=== PATIENT | male | born 1960 | race African-American/Black ===

== ENCOUNTER 2016-04-12 16:37 | Inpatient (IN) | payer OTHER ==
[2016-04-12 17:26] VITALS: BMI 28.5
--- NOTE | 2016-04-12 20:02 | HP ---
Admission ROS [facility] Chief Complaint: SEEKING ADMITTANCE TO REHAB. Allergies/Adverse Reactions: Allergies Allergy/AdvReac Type Severity Reaction Status Date / Time No Known Allergies Allergy Verified 04/12/16 19:59 History of Present Illness: 56 Y.O. MAN IS SEEKING REHAB. HE REPORTS A 10 YEAR HISTORY OF HEROIN DEPENDENCE. HE RECENTLY COMPLETED DETOX AT [facility]. Exam Limitations: No Limitations - Ebola screening Have you traveled outside of the country in the last 21 days: No Have you had contact with anyone from an Ebola affected area: No Have you been sick,other than usual withdrawal symptoms: No Do you have a fever: No - Review of Systems Constitutional: Loss of Appetite, Changes in sleep, Weakness EENT: reports: Tearing, Nose Congestion Respiratory: reports: No Symptoms reported Cardiac: reports: No Symptoms Reported GI: reports: Other (GAS) : reports: No Symptoms Reported Musculoskeletal: reports: No Symptoms Reported Integumentary: reports: No Symptoms Reported Neuro: reports: Weakness Endocrine: reports: No Symptoms Reported Hematology: reports: No Symptoms Reported Psychiatric: reports: Judgement Intact, Mood/Affect Appropiate, Orientated x3 Other Systems: Reviewed and Negative Patient History - Patient Medical History Hx Anemia: No Hx Asthma: No Hx Chronic Obstructive Pulmonary Disease (COPD): No Hx Cancer: No Hx Cardiac Disorders: No Hx Congestive Heart Failure: No Hx Hypertension: No Hx Hypercholesterolemia: No Hx Pacemaker: No HX Cerebrovascular Accident: No Hx Seizures: No Hx Dementia: No Hx Diabetes: No Hx Gastrointestinal Disorders: No Hx Liver Disease: No Hx Genitourinary Disorders: No Hx Sexually Transmitted Disorders: No Hx Renal Disease (ESRD): No Hx Thyroid Disease: No Hx Human Immunodeficiency Virus (HIV): No Hx Hepatitis C: No Hx Depression: No Hx Suicide Attempt: No Hx Bipolar Disorder: No Hx Schizophrenia: No - Patient Surgical History Past Surgical History: No - PPD History Previous Implant?: Yes Documented Results: Negative w/o proof Implanted On Prior [facility] Admission?: No PPD to be Administered?: Yes - Reproductive History Patient is a Female of Child Bearing Age (11 -55 yrs old): No - Smoking Cessation Smoking history: Current every day smoker Have you smoked in the past 12 months: Yes Aproximately how many cigarettes per day: 20 Hx Chewing Tobacco Use: No Initiated information on smoking cessation: Yes 'Breaking Loose' booklet given: 04/12/16 - Substance & Tx. History Hx Alcohol Use: No Hx Substance Use: Yes Substance Use Type: Heroin Hx Substance Use Treatment: Yes (DETOX AND REHAB ) - Substances Abused Heroin Route: Inhalation Frequency: Daily Amount used: 10-12 BAGS Age of first use: 26 Date of Last Use: 04/05/16 Family Disease History - Family Disease History Family History: Denies Admission Physical Exam [facility] - Vital Signs Vital Signs: Vital Signs - 24 hr 04/12/16 17:23 Temperature 98.0 F Pulse Rate 90 Respiratory 18 Rate Blood Pressure 138/88 - Physical General Appearance: Yes: No Apparent Distress, Nourished, Appropriately Dressed HEENTM: Yes: Hearing grossly Normal, Normal ENT Inspection, Normocephalic, Normal Voice Respiratory: Yes: Chest Non-Tender, Lungs Clear, Normal Breath Sounds, No Respiratory Distress, No Accessory Muscle Use Neck: Yes: No masses,lesions,Nodules Breast: Yes: Breast Exam Deferred Cardiology: Yes: Regular Rhythm, Regular Rate, S1, S2 Abdominal: Yes: Normal Bowel Sounds, Non Tender, Flat, Soft Genitourinary: Yes: Other (NO COMPLAINTS REPORTED) Back: Yes: Normal Inspection Musculoskeletal: Yes: full range of Motion, Gait Steady Extremities: Yes: Normal Inspection, Normal Range of Motion, Non-Tender Neurological: Yes: Fully Oriented, Alert, Motor Strength 5/5, Normal Mood/Affect , Normal Response Integumentary: Yes: Normal Color, Dry, Warm Lymphatic: Yes: Within Normal Limits - Diagnostic (1) Opioid dependence with withdrawal Current Visit: Yes Status: Chronic Cleared for Admission [facility] - Detox or Rehab [facility] Level of Care: Observation Bed Claeared for Rehab Admission: Yes [facility] Breath Alcohol Content Breath Alcohol Content: 0 Urine Drug Screen - Results Drug Screen Negative: No Urine Drug Screen Results: OPI-Opiates, MDMA-Ecstasy
[2016-04-12] MEDS ORDERED: LOPERAMIDE HCL 2 MG CAPSULE PO PRN (20:06)
[2016-04-12] MEDS ORDERED: MAG HYDROX/AL HYDROX/SIMETH 30 ML UNIT-DOSE CUP PO PRN (20:06)
[2016-04-12] MEDS ORDERED: guaiFENesin/D-METHORPHAN HB 10 ML UNIT-DOSE CUPS PO PRN (20:06)
[2016-04-12] MEDS ORDERED: MAGNESIUM CITRATE 300 ML BOTTLE PO PRN (20:06)
[2016-04-12] MEDS ORDERED: diphenhydrAMINE HCL 50 MG CAPSULE PO PRN (20:06)
[2016-04-12] MEDS ORDERED: ACETAMINOPHEN 325 MG TABLET (FP) PO PRN (20:06)
[2016-04-12] MEDS ORDERED: IBUPROFEN 400 MG TABLET (FP) PO PRN (20:06)
[2016-04-12] MEDS ORDERED: NICOTINE POLACRILEX 2 MG GUM BC PRN (20:06)
[2016-04-12] MEDS ORDERED: hydrOXYzine PAMOATE 50 MG CAPSULE (FP) PO PRN (20:06)
[2016-04-12] MEDS ORDERED: MENTHOL/PHENOL 1 EACH UD MM PRN (20:06)
[2016-04-12] MEDS ORDERED: P-EPHED 60MG/TRIPROLIDI 2.5MG TABLET PO PRN (20:06)
[2016-04-12] MEDS ORDERED: MAGNESIUM HYDROX 2400MG/30ML ORAL SUSPENSION 30 ML CUP PO PRN (20:06)
[2016-04-12] MEDS: THIAMINE HCL 100 MG TABLET (FP) PO SCH (23:19)
[2016-04-12] MEDS ORDERED: TUBERCULIN PPD 5 TU/0.1ML VIAL ID ONE (23:20)
[2016-04-12 23:28] LABS: URINE APPEARANCE CLEAR; URINE BILIRUBIN NEGATIVE (NEGATIVE); URINE BLOOD NEGATIVE (NEGATIVE); URINE COLOR LTYELLOW; URINE GLUCOSE (UA) NEGATIVE (NEGATIVE); URINE KETONE NEGATIVE (NEGATIVE); URINE LEUK ESTERASE NEGATIVE (NEGATIVE); URINE NITRITE NEGATIVE (NEGATIVE); URINE PROTEIN NEGATIVE (NEGATIVE); URINE UROBILINOGEN NEGATIVE E.U./dl (0.2-1.0)
--- NOTE | 2016-04-13 07:10 | HP ---
Psychiatrist Admission - Data Date of interview: 04/13/16 Admission source: [facility] Identifying data: This is the first [facility] admission for this 56 years old male, father of 2 children, unemployed on SSI, living with family Medical History: None reported. Smokes cigarettes 1ppd Psychiatric History: Denies history of previous psychiatric treatment Physical/Sexual Abuse/Trauma History: Denies history of physical, sexual abuse as well as DV relationship Additional Comment: Reports history of 5 previous arrests including one felony conviction. Denies being on probation/parole at present Vital Signs: Vital Signs - 24 hr 04/12/16 04/13/16 04/13/16 17:23 00:30 03:30 Temperature 98.0 F Pulse Rate 90 Respiratory 18 18 16 Rate Blood Pressure 138/88 04/13/16 06:48 Temperature 98.3 F Pulse Rate 78 Respiratory 18 Rate Blood Pressure 126/70 Allergies/Adverse Reactions: Allergies Allergy/AdvReac Type Severity Reaction Status Date / Time No Known Allergies Allergy Verified 04/12/16 19:59 Date of last physical exam: 04/12/16 Concur with the findings of this exam: Yes - Substance Abuse/Tx History Hx Alcohol Use: No Hx Substance Use: Yes Substance Use Type: Heroin (Started using heroin at age 26, consumes 10-12 bags daily. Last used on 04/05/16) Hx Substance Use Treatment: Yes (2 previous inpt detox and one inpt rehab) - Admission Criteria Previous failed treatment: Yes Poor recovery environment: Yes Comorbidities: Yes Lacks judgement: Yes Mental Status Exam - Mental Status Exam Alert and Oriented to: Time, Person Cognitive Function: Fair Patient Appearance: Well Groomed Mood: Depressed Affect: Appropriate Patient Behavior: Cooperative Speech Pattern: Clear Voice Loudness: Normal Thought Process: Intact Hallucinations: Denies Suicidal Ideation: Denies Homicidal Ideation: Denies Insight/Judgement: Fair Sleep: Poorly Appetite: Poor Muscle strength/Tone: Normal Gait/Station: Normal Psychiatric Findings - Problem List ([place] 1, 2,3) (1) Opioid dependence with withdrawal Current Visit: Yes Status: Chronic (2) Substance induced mood disorder Current Visit: Yes Status: Acute (3) Substance-induced sleep disorder Current Visit: Yes Status: Acute (4) Nicotine dependence Current Visit: Yes Status: Acute - Initial Treatment Plan Initial Treatment Plan: 1) Start Trazadone 100 mg po HS. 2) Monitor progress
[2016-04-13] MEDS: NICOTINE 21 MG/24 HOURS TOPICAL PATCH TD SCH (10:04)
[2016-04-13] MEDS: PRENATAL VITAMINS W/ FOLIC ACID TABLET (FP) PO SCH (10:04)
[2016-04-13 10:32] LABS: MCH 27.5 pg (25.7-33.7); MEAN CELL VOLUME 83.1 fl (80-96); MEAN PLT VOLUME 8.3 fl (7.5-11.1); PLATELET COUNT 312 K/MM3 (134-434); RDW 15.3 % (11.9-15.9); WHITE BLOOD COUNT 7.4 K/mm3 (4.0-10.0)
[2016-04-13 10:57] LABS: ALBUMIN 3.6 g/dl (3.4-5.0); ALK PHOS 63 U/L (45-117); ANION GAP 7 (8-16); BILIRUBIN,TOTAL 0.4 mg/dL (0.2-1.0); CALCIUM 9.2 mg/dL (8.5-10.1); CO2 27 mmol/L (21-32); CREATININE 0.9 mg/dL (0.7-1.3); GLUCOSE,RANDOM 100 mg/dL (74-106); SGOT/AST 10 U/L (15-37); SGPT/ALT 21 U/L (12-78); TOT PROT 7.5 g/dl (6.4-8.2)
--- NOTE | 2016-04-13 11:48 | EKG ---
Test Reason : Blood Pressure : / mmHG Vent. Rate : 083 BPM Atrial Rate : 083 BPM P-R Int : 208 ms QRS Dur : 082 ms QT Int : 366 ms P-R-T Axes : 026 028 -09 degrees QTc Int : 430 ms NORMAL SINUS RHYTHM POSSIBLE INFERIOR INFARCT , AGE UNDETERMINED ABNORMAL ECG NO PREVIOUS ECGS AVAILABLE Confirmed by MARY ANN ARIAS, CHUNG ([id number]) on 04/13/2016 11:48:06 AM Referred By: Honey Peter Confirmed By:CHUNG REESE MD
[2016-04-13] MEDS: traZODone HCL 100 MG TABLET (FP) PO SCH (21:26)
[2016-04-13] MEDS: THIAMINE HCL 100 MG TABLET (FP) PO SCH (21:26)
[2016-04-14] MEDS: PRENATAL VITAMINS W/ FOLIC ACID TABLET (FP) PO SCH (09:38)
[2016-04-14] MEDS: NICOTINE 21 MG/24 HOURS TOPICAL PATCH TD SCH (09:38)
[2016-04-14] MEDS ORDERED: CYANOCOBALAMIN (VITAMIN B-12) 1000 MCG/1 ML VIAL IM ONE (13:45)
[2016-04-14] MEDS: FLUTICASONE PROP 0.05% 16 GM NASAL SPRAY NS SCH (22:38)
[2016-04-14] MEDS: THIAMINE HCL 100 MG TABLET (FP) PO SCH (22:38)
[2016-04-14] MEDS: traZODone HCL 100 MG TABLET (FP) PO SCH (22:38)
[2016-04-15] MEDS: PRENATAL VITAMINS W/ FOLIC ACID TABLET (FP) PO SCH (09:43)
[2016-04-15] MEDS: NICOTINE 21 MG/24 HOURS TOPICAL PATCH TD SCH (09:44)
[2016-04-15] MEDS: FLUTICASONE PROP 0.05% 16 GM NASAL SPRAY NS SCH ×2 (09:44→22:26)
[2016-04-15] MEDS: THIAMINE HCL 100 MG TABLET (FP) PO SCH (22:26)
[2016-04-15] MEDS: traZODone HCL 100 MG TABLET (FP) PO SCH (22:26)
[2016-04-16 06:29] VITALS: BP 134/84; PULSE 84; TEMP 98.7
[2016-04-16] MEDS: FLUTICASONE PROP 0.05% 16 GM NASAL SPRAY NS SCH (09:12)
[2016-04-16] MEDS: NICOTINE 21 MG/24 HOURS TOPICAL PATCH TD SCH (10:27)
[2016-04-16] MEDS: PRENATAL VITAMINS W/ FOLIC ACID TABLET (FP) PO SCH (10:27)
== END 2016-04-16 09:15 | disposition left against medical advice (07) | DRG 770 ==
LOC: YASAS 16:37 → Y3W 21:12
PROVIDERS: ADMIT Psychiatry & Neurology Psychiatry; ATTEND Psychiatry & Neurology Psychiatry
PROC: HZ42ZZZ Group Counseling for Substance Abuse Treatment, Cognitive-Behavioral (ICD-10-PCS; principal; 2016-04-12)
DX: F11.23 Opioid dependence with withdrawal (principal); F17.210 Nicotine dependence, cigarettes, uncomplicated; F19.24 Other psychoactive substance dependence with psychoactive substance-induced mood disorder; F19.282 Other psychoactive substance dependence with psychoactive substance-induced sleep disorder
CPT/HCPCS: 36415; 80053; 81003; 85027; 86593; 93005; 93010